=== PATIENT | male | born 1960 ===

== ENCOUNTER 2019-03-08 15:06 | Emergency (ER) | payer SELFPAY ==
[~2019-03-08] VITALS: Ht 180.3 cm; Wt 77.3 kg
[2019-03-08] MEDS ORDERED: POLYMYXIN B/TRIMETHOPRIM 10 ML OPHTHALMIC SOLUTION OU ONE (17:45)
[2019-03-08 19:30] VITALS: BP 124/80
== END 2019-03-08 19:30 | disposition home or self-care (01) ==
LOC: EMS 15:13
DX: H10.89 Other conjunctivitis (principal)